=== PATIENT | male | born 1965 ===

== ENCOUNTER 2023-03-15 09:47 | Emergency (ER) | payer MEDICAID, SELFPAY ==
--- NOTE | ~2023-03-15 | XR_ITS ---
EXAMINATION: XR SHOULDER, LEFT CLINICAL INFORMATION: Pain COMPARISON: None available. TECHNIQUE: 3 views of the left shoulder. FINDINGS: No evidence of acute fracture or dislocation. Glenohumeral and acromioclavicular alignment is anatomic with normal joint space. No abnormal soft tissue calcifications. Intact left clavicle. No suspicious lung findings. XR/XR shoulder LT min 2V IMPRESSION: No radiographically evident acute osseous abnormality..
[2023-03-15 09:55] VITALS: BP 132/82; PULSE 66; RESP 16; TEMP 36; O2SAT 99; BMI 28.3
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
[2023-03-15] MEDS: Ketorolac Tromethamine 30 MG/ML VIAL IM (10:48)
[2023-03-15] MEDS: Lidocaine 4 % Patch ADH..PATCH 1 PATCH TRANSDERMA (10:48)
[2023-03-15 11:09] VITALS: BP 121/61; PULSE 68; RESP 14; TEMP 36.8; O2SAT 100
--- NOTE | 2023-03-15 11:26 | PC.NURSE ---
Patient complaining of left should/neck pain. Patient is alert and oriented sitting calm and cooperatively in room, able to move all extremities without issue. Patient generally well appearing.
== END 2023-03-15 11:29 | disposition home or self-care (01) ==
PROVIDERS: Emergency Provider Emergency Medicine
DX: S16.1XXA Strain of muscle, fascia and tendon at neck level, initial encounter (principal); S46.912A Strain of unspecified muscle, fascia and tendon at shoulder and upper arm level, left arm, initial encounter; X58.XXXA Exposure to other specified factors, initial encounter; Y93.9 Activity, unspecified; Y92.9 Unspecified place or not applicable; Y99.9 Unspecified external cause status; Z79.899 Other long term (current) drug therapy
CPT/HCPCS: 73030; 96372; 99284; J1885